=== PATIENT | female | born 1980 | race African-American/Black ===

== ENCOUNTER 2023-10-08 01:00 | Emergency (ER) | payer OTHER, MEDICAID ==
[~2023-10-08] VITALS: Ht 172.7 cm; Wt 86.1 kg
[2023-10-08 01:11] VITALS: BP 120/79
[2023-10-08 01:21] LABS: BASO% 0.8 % (0-3); EOS% 5.1 % (0-8); HEMATOCRIT 36.2 % (37.0-47.0); HEMOGLOBIN 11.1 g/dl (12.0-16.0); MEAN CELL VOLUME 73.3 fL CALC (80.0-100.0); MEAN CORPUSCULAR HGB 22.5 pG CALC (26.0-32.0); MEAN CORPUSCULAR HGB CONC 30.7 g/dL CAL (32.0-36.0); NEUT# 2.42 thou/uL (2.00-7.15); NEUT% 46.1 % (42-76); RED BLOOD COUNT 4.94 mill/uL (4.20-5.60); RED CELL DISTRI WIDTH 14.5 % (11.5-15.5)
[2023-10-08 01:45] LABS: URINE BILIRUBIN - DIPSTICK Negative (NEGATIVE); URINE BLOOD DIPSTICK Negative (NEGATIVE); URINE GLUCOSE - DIPSTICK Negative (NEGATIVE); URINE KETONE Trace mg/dL (NEGATIVE); URINE LEUK ESTERASE Negative (NEGATIVE); URINE NITRITE - DIPSTICK Negative (Negative); URINE PROTEIN - DIPSTICK Negative (NEG-TRACE); URINE SPECIFIC GRAVITY >=1.030
[2023-10-08 01:46] LABS: URINE COLOR Yellow
[2023-10-08 01:59] LABS: ALBUMIN 4.3 g/dL (3.2-5.0); ALKALINE PHOSPHATASE 54 u/l (38-126); ANION GAP 12 (6-22 (CALC)); BILIRUBIN, TOTAL 0.2 mg/dL (0.02-1.3); BUN 12 mg/dL (7-17); BUN/CREATININE RATIO 14 (12-20 (CALC)); CARBON DIOXIDE 24 mmol/l (22-30); CHLORIDE 109 mmol/l (95-108); CREATININE 0.9 mg/dL (0.5-1.0); GFR FOR AFR.AMER. > 60 ML/MIN (>=60 (CALC)); GFR OTHER RACES > 60 ML/MIN (>=60 (CALC)); POTASSIUM 3.3 mmol/l (3.5-5.1); SGOT/AST 21 u/l (14-36); SODIUM 141 mmol/l (137-146); TOTAL PROTEIN 7.3 g/dL (6.3-8.2)
[2023-10-08 02:00] VITALS: BP 130/62
[2023-10-08 02:20] VITALS: BP 128/76
[2023-10-08] MEDS ORDERED: PROVENTIL HFA108 MCG IN ×2 (02:25→02:32)
[2023-10-08 02:40] VITALS: BP 131/75
[2023-10-08 02:49] VITALS: BP 131/75
[2023-10-08 03:17] LABS: MYOGLOBIN 33 ng/mL (14.3-65.8)
== END 2023-10-08 02:49 | disposition home or self-care (01) | DRG 203 ==
LOC: ED 01:00
PROVIDERS: Family Medicine
DX: J45.901 Unspecified asthma with (acute) exacerbation (principal); Z20.822 Contact with and (suspected) exposure to COVID-19